=== PATIENT | male | born 1960 | race Caucasian/White ===

== ENCOUNTER 2023-03-11 13:46 | Emergency (ER) | payer MEDICARE, OTHER ==
[~2023-03-11] VITALS: Ht 172.7 cm; Wt 81.7 kg
[~2023-03-11 13:46] MED LIST: HYDROCODON-ACE1 EA11 PO; NORVASC5 MG PO
--- OUTSIDE RECORDS SUMMARY | 2023-03-11 13:48 | XMS ---
PreManage Notification: [employer] Work[employer] Events No recent Security Events currently on file CRITERIA MET - [facility] - [facility] - 2 Visits in 30 Days CARE PROVIDERS There are no care providers on record at this time. Trent has no Care Guidelines for this patient. [place] VISIT COUNT (12 MO.) [address] [facility] [place] [facility] TOTAL 2 NOTE: Visits indicate total known visits. ED/C VISIT TRACKING (12 MO.) 03/11/2023 13:[address] 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
[2023-03-11] MEDS ORDERED: FLOMAX0.4 MG (14:02)
[2023-03-11 14:21] LABS: BILIRUBIN, URINE NEGATIVE (negative); BLOOD/HGB, URINE NEGATIVE (Negative); KETONE, URINE NEGATIVE (Negative); LEUK ESTERASE, URINE NEGATIVE (negative); NITRITE, URINE NEGATIVE (negative)
[2023-03-11 14:28] LABS: CASTS, URINE NONE SEEN \\lpf; COLLECTION TYPE, URINE CLEAN CATCH; CRYSTALS, URINE NONE SEEN (0-1+); EPITHELIAL CELLS, URINE 0 /lpf (0-1+); RED BLOOD CELLS, URINE 0-1 /hpf (0-5)
[2023-03-11 14:29] LABS: BACTERIA, URINE RARE /hpf (negative); REFLEX CULTURE, URINE Yes (No)
[2023-03-11 14:30] LABS: WHITE BLOOD CELLS, URINE 21-40 /HPF (0-5)
[2023-03-11] MEDS ORDERED: MACROBID 100 M100 MG PO (14:59)
[2023-03-11 15:11] VITALS: BP 135/84
== END 2023-03-11 15:10 | disposition home or self-care (01) ==
LOC: ED 13:46
PROVIDERS: Emergency Medicine
DX: R33.9 Retention of urine, unspecified (principal); Z88.0 Allergy status to penicillin; Z88.1 Allergy status to other antibiotic agents; Z88.2 Allergy status to sulfonamides; Z79.899 Other long term (current) drug therapy
CPT/HCPCS: 51702; 51798; 80053; 81001; 85025; 87088; 99283